=== PATIENT | male | born 1980 | race Caucasian/White ===

== ENCOUNTER 2016-06-11 09:31 | Emergency (ER) | payer OTHER ==
[2016-06-11 09:43] VITALS: RESP 18
[2016-06-11] MEDS ORDERED: ONDANSETRON 4 MG/2 ML VIAL IVP ONE (10:23)
[2016-06-11] MEDS ORDERED: NS 1,000 ML IV ONE (10:23)
[2016-06-11] MEDS ORDERED: KETOROLAC 30 MG/1 ML SDV IVP ONE (10:23)
[2016-06-11 10:31] LABS: % IMMATURE GRANULYOCYTES 0.2 % (0.0-1.1); ABSOLUTE IMMATURE GRANULOCYTES 0.02 10^3/uL (0.00-0.10); ADD DIFF? NO; ADD MORPH? NO; ADD SCAN? NO; ATYPICAL LYMPHOCYTE FLAG 10 (0-99); FRAGMENT RBC FLAG 0 (0-99); HEMATOCRIT 50.4 % (40.0-51.0); HEMOGLOBIN 17.6 g/dL (13.7-17.5); LEFT SHIFT FLG 0 (0-99); LIPEMIA HEMOLYSIS FLAG 90 (0-99); MEAN CELL HEMOGLOBIN 31.2 pg (27.9-34.1); MEAN CELL HEMOGLOBIN CONCENTR. 34.9 g/dL (32.4-36.7); MEAN CELL VOLUME 89.2 fL (81.5-99.8); PLATELET CLUMPS FLAG 0 (0-99); PLATELET COUNT 185 10^3/uL (150-400); RED BLOOD CELL COUNT 5.65 10^6/uL (4.40-6.38); RED CELL DISTRIBUTION WIDTH 12.8 % (11.5-15.2)
[2016-06-11 10:37] LABS: ANION GAP 12 mEq/L (8-16); CALCIUM 9.5 mg/dL (8.5-10.4); CARBON DIOXIDE 28 mEq/l (22-31); CHLORIDE 100 mEq/L (97-110); CREATININE 0.9 mg/dL (0.7-1.3); GLOMERULAR FILTRATION RATE > 60; GLUCOSE 96 mg/dL (70-100); POTASSIUM 4.2 mEq/L (3.5-5.2); SODIUM 140 mEq/L (134-144)
[2016-06-11 10:46] LABS: SEDIMENTATION RATE 4 MM/HR (0-15)
--- NOTE | 2016-06-11 11:23 | CT ---
CT Brain (Without Contrast) at 1045 hours History: Headache, flu. Comparison: None. Technique: Axial computed tomographic images of the brain without contrast. Dose reduction technique s were utilized. 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 Benign neuroepithelial cyst in the inferior mesial right temporal lobe region. Ventricles, ci sterns, and sulci are normal without atrophy, hydrocephalus, midline shift/herniation, or epidural/romero bdural hematomas. No acute intraparenchymal hemorrhage, definite infarct, or mass effect. Bone window s demonstrate no displaced fractures. Moderate mucosal thickening in bilateral ethmoid sinuses. Minim al mucosal thickening in right sphenoid sinus. Mucous retention cysts or polyps inferior aspects of b ilateral maxillary sinuses up to 2 cm larger on the left. Mastoid air cells are clear. No bone expans ion or destruction. Impression: 1. Mild to moderate sinus disease. 2. No intracranial hemorrhage, hydrocephalus or mass effect. 3. Consider MRI of the brain without and with contrast enhancement, if there is continued clinical co ncern. Findings and recommendations discussed with Emergency Department physician, Dr. Conde, at 1110 ho urs today. Final report concurs with initial preliminary interpretation.
--- NOTE | 2016-06-11 12:08 | UCPHY ---
H & P Patient Type: New Chief Complaint Nursing Narrative: headache starting last , getting worse, head is also sensitive to touch. also reports fevers/chills Time Seen by Provider: 06/11/16 09:39 HPI/ROS: 36-year-old male presents complaining of headache for approximately 1 week duration, the headache is generalized. He has had no photophobia no nausea or vomiting with this headache. He has had intermittent fevers and chills and malaise over the last week he also complains of extremely sensitive scalp for the last 1 week. Review of systems As per HPI General no fever no chills no weakness HEENT no eye pain no eye discharge. No eye redness, no sore throat Respiratory no cough, no shortness of breath Cardiac no chest pain, no peripheral edema GI no abdominal pain, no diarrhea, no constipation, no nausea, no vomiting no flank pain, no hematuria, no dysuria Musculoskeletal no myalgias, no joint pain Heme no easy bruising, no easy bleeding Endo no polyuria, no polydipsia Skin no rashes, no pruritus Neuro no syncope, no dizziness, positive headaches Psych is no suicidal ideation, no homicidal ideation Source: Patient Exam Limitations: No limitations - Personal History Current Tetanus/Diphtheria Vaccine: No Current Tetanus Diphtheria and Acellular Pertussis (TDAP): No - Medical/Surgical History Hx Asthma: No Hx Chronic Respiratory Disease: No Hx Diabetes: No Hx Cardiac Disease: No Hx Renal Disease: No Hx Cirrhosis: No Hx Alcoholism: No Hx HIV/AIDS: No Hx Splenectomy or Spleen Trauma: No Other PMH: ortho sx - Family History Significant Family History: No pertinent family hx - Social History Smoking Status: Never smoked Alcohol Use: Rarely Drug Use: None - Physical Exam Exam: 36-year-old male, alert and oriented no acute distress nontoxic appearance afebrile Scalp no rash Facial flushing present HEENT atraumatic normocephalic, extraocular muscles intact, anicteric Oropharynx negative for erythema negative exudate, tolerating her own secretions Neck supple no meningismus Lungs clear to auscultation bilaterally Heart regular rate and rhythm without murmur rub or gallop Abdomen nondistended normoactive bowel sounds soft nontender Back no CVA tenderness, no step-offs, no spinal tenderness Extremities no cyanosis clubbing or edema Neuro alert and oriented, no focal deficits Constitutional: Initial Vital Signs Temperature (C) 36.2 C 06/11/16 09:41 Heart Rate 77 06/11/16 09:41 Respiratory Rate 18 06/11/16 09:41 Blood Pressure 144/87 H 06/11/16 09:41 O2 Sat (%) 97 06/11/16 09:41 O2 Delivery Mode Room Air Allergies/Adverse Reactions: erythromycin lactobionate [From Erythrocin] Allergy (Verified 06/11/16 09:40) Home Medications: Medication Instructions Recorded NK [No Known Home Meds] 06/11/16 Medical Decision Making ED Course/Re-evaluation: Patient seen and evaluated for headache of 1 week duration associated with fevers chills and scalp sensitivity. Labs including CBC erythrocyte sedimentation rate and a BMP within normal limits Influenza negative CT head negative for acute pathology positive evidence of chronic sinusitis Patient given IV fluids, ondansetron and Toradol with marked relief of headache. Impression Viral syndrome Plan Discharge home Supportive care Follow up with primary care physician - Data Points Laboratory Results: Laboratory Results 06/11/16 09:45 06/11/16 09:45 06/11/16 06/11/16 10:35 09:45 WBC 9.07 10^3/uL (3.80-9.50) RBC 5.65 10^6/uL (4.40-6.38) Hgb 17.6 H g/dL (13.7-17.5) Hct 50.4 % (40.0-51.0) MCV 89.2 fL (81.5-99.8) MCH 31.2 pg (27.9-34.1) MCHC 34.9 g/dL (32.4-36.7) RDW 12.8 % (11.5-15.2) Plt Count 185 10^3/uL (150-400) MPV 11.0 fL (8.7-11.7) Neut % (Auto) 64.1 % (39.3-74.2) Lymph % (Auto) 27.0 % (15.0-45.0) [place] % (Auto) 6.5 % (4.5-13.0) Eos % (Auto) 1.4 % (0.6-7.6) Baso % (Auto) 0.8 % (0.3-1.7) Nucleat RBC Rel Count 0.0 % (0.0-0.2) Absolute Neuts (auto) 5.81 10^3/uL (1.70-6.50) Absolute Lymphs (auto) 2.45 10^3/uL (1.00-3.00) Absolute Monos (auto) 0.59 10^3/uL (0.30-0.80) Absolute Eos (auto) 0.13 10^3/uL (0.03-0.40) Absolute Basos (auto) 0.07 10^3/uL (0.02-0.10) Absolute Nucleated RBC 0.00 10^3/uL (0-0.01) Immature Gran % 0.2 % (0.0-1.1) Immature Gran # 0.02 10^3/uL (0.00-0.10) ESR 4 MM/HR (0-15) Sodium 140 mEq/L (134-144) Potassium 4.2 mEq/L (3.5-5.2) Chloride 100 mEq/L (97-110) Carbon Dioxide 28 mEq/l (22-31) Anion Gap 12 mEq/L (8-16) BUN 17 mg/dL (7-23) Creatinine 0.9 mg/dL (0.7-1.3) Estimated GFR > 60 Glucose 96 mg/dL (70-100) Calcium 9.5 mg/dL (8.5-10.4) Influenza Typ A,B (DFA) NEGATIVE FOR FLU (NEGATIVE) Medications Given: Discontinued Medications Sodium Chloride (Ns) 1,000 mls @ 0 mls/hr IV ONCE ONE PRN Reason: Wide Open Stop: 06/11/16 10:24 Last Admin: 06/11/16 10:36 Dose: 1,000 mls Ketorolac Tromethamine (Toradol) 30 mg IVP EDNOW ONE Stop: 06/11/16 10:24 Last Admin: 06/11/16 10:36 Dose: 30 mg Ondansetron HCl (Zofran) 4 mg IVP EDNOW ONE Stop: 06/11/16 10:24 Last Admin: 06/11/16 10:37 Dose: 4 mg Departure - Departure Disposition: Home, Routine, Self-Care Clinical Impression: Acute viral syndrome Condition: Good Instructions: Viral Syndrome (ED) Referrals: NONE *PRIMARY CARE P,. [Primary Care Provider] - As per Instructions - PQRS PQRS Measurement: na
[2016-06-11 12:12] VITALS: BP 136/71; PULSE 82; TEMP 98.2; O2SAT 96
== END 2016-06-11 12:15 | disposition home or self-care (01) ==
LOC: CED 09:31
DX: B34.9 Viral infection, unspecified (principal)
CPT/HCPCS: 70450-PO; 80048-PO; 85025-PO; 85652-PO; 87400-PO; 96361-PO; 96374-PO; 96375-PO; 99205-PO; G0463-PO; J1885; J2405